=== PATIENT | male | born 1970 | race Caucasian/White ===

== ENCOUNTER → 2017-05-09 | Outpatient (CLI) | payer OTHER ==
[~2017-05-09] MED LIST: ALBU90OI INH; AMOX500 PO; Amoxicillin500 MG PO; CYCL10 PO; HYDACE5 PO; HYDR1TAB94 PO; MECL25 PO; NAPR500 PO; Norco 5-325 Ta1 EACH PO; PRED20 PO; TRAM50 PO
[2017-05-09 14:50] LABS: CHOL/HDL RATIO 3.7; Cholesterol 123 mg/dL (50-200); HDL Cholesterol 33 mg/dL (>39); LDL/HDL RATIO 1.7; Low Density Lipoprotein Chol 58 mg/dL (0-110); Triglycerides 162 mg/dL (30-160); Very Low Density Lipoprot Chol 32 mg/dL (6-32)
== END | disposition home or self-care (01) ==
LOC: LAB 14:03
PROVIDERS: Hospitalist
DX: E78.5 Hyperlipidemia, unspecified (principal); R73.9 Hyperglycemia, unspecified; P81.8 Other specified disturbances of temperature regulation of newborn
CPT/HCPCS: 80061; 83036; 84439; 84443

== ENCOUNTER 2017-05-21 23:11 | Emergency (ER) | payer OTHER ==
[~2017-05-21] VITALS: Ht 172.7 cm; Wt 86.2 kg
[~2017-05-21 23:11] MED LIST changes: -Amoxicillin500 MG PO; -HYDR1TAB94 PO
[2017-05-21] MEDS ORDERED: HYDR1TAB94 PO (23:36)
[2017-05-21] MEDS ORDERED: Amoxicillin500 MG PO (23:58)
== END 2017-05-22 00:30 | disposition home or self-care (01) ==
LOC: ER 23:11
DX: H66.91 Otitis media, unspecified, right ear (principal)
CPT/HCPCS: 99282

== ENCOUNTER 2017-05-27 20:31 | Emergency (ER) | payer OTHER ==
[~2017-05-27] VITALS: Ht 172.7 cm; Wt 86.2 kg
[~2017-05-27 20:31] MED LIST changes: +Amoxicillin500 MG PO; +HYDR1TAB94 PO
== END 2017-05-27 21:00 | disposition home or self-care (01) ==
LOC: ER 20:31
DX: J06.9 Acute upper respiratory infection, unspecified (principal); B34.9 Viral infection, unspecified
CPT/HCPCS: 99282

== ENCOUNTER → 2017-09-18 | Outpatient (CLI) | payer OTHER | LOC: LAB SHORT 16:25 → LAB 16:25 | DX: L08.9 Local infection of the skin and subcutaneous tissue, unspecified (principal) | CPT/HCPCS: 87070; 87077; 87147; 87186; 87205 ==

== ENCOUNTER 2018-04-23 06:30 | Day surgery (SDC) | payer OTHER ==
[~2018-04-23] VITALS: Ht 172.7 cm; Wt 88.2 kg
[~2018-04-23 06:30] MED LIST changes: +QVAR REDIHALE10.6 G1 INH
--- NOTE | 2018-04-23 08:29 | NUR ---
04/23/18 0828 Tiffany Pierre PT. VERBALIZES LEFT FINGERS "FEEL TINGLY". PT. VERBALIZES CAN FEEL TOUCH "ONLY BECAUSE YOUR HANDS ARE COLD." PT. TALKING ABOUT NURSE TOUCHING HIS FINGERS. PT. WITH GOOD CAP REFILL TO LEFT FINGERS. LEFT AND ELEVATED UP ON PILLOW. PT. SITTING IN RECLINER DRINKING JUICE & EATING PUDDING. FAMILY AT AN APPOINTMENT. PT. DENIES NAUSEA OR PAIN. PT. JUST VERBALIZES FEELING TIRED. PT. INSTRUCTED TIREDNESS FROM MEDICATIONS THAT WERE GIVEN FOR HIS SURGERY.
== END 2018-04-23 08:59 | disposition home or self-care (01) ==
LOC: ORSCSDS 06:30
PROVIDERS: Orthopaedic Surgery
PROC: 01N50ZZ Release Median Nerve, Open Approach (ICD-10-PCS; principal; 2018-04-23 08:00)
DX: G56.02 Carpal tunnel syndrome, left upper limb (principal); E66.9 Obesity, unspecified; Z68.30 Body mass index [BMI] 30.0-30.9, adult; Z79.899 Other long term (current) drug therapy
CPT/HCPCS: J2250; J3010; J7120

== ENCOUNTER 2019-09-09 06:12 | Day surgery (SDC) | payer OTHER ==
[~2019-09-09] VITALS: Ht 172.7 cm; Wt 88.4 kg
[~2019-09-09 06:12] MED LIST changes: +SERT50 PO
== END 2019-09-09 08:13 | disposition home or self-care (01) ==
LOC: ORSCSDS 06:12
PROVIDERS: Orthopaedic Surgery
PROC: 01N50ZZ Release Median Nerve, Open Approach (ICD-10-PCS; principal; 2019-09-09 07:30)
DX: G56.01 Carpal tunnel syndrome, right upper limb (principal); J45.909 Unspecified asthma, uncomplicated
CPT/HCPCS: J2250; J2405; J7120

== ENCOUNTER 2020-11-17 19:29 | Emergency (ER) | payer OTHER | END 2020-11-17 20:59 | disposition left against medical advice (07) | LOC: ER 19:29 | DX: Z53.21 Procedure and treatment not carried out due to patient leaving prior to being seen by health care provider (principal) ==